=== PATIENT | male | born 1965 | race Caucasian/White ===

== ENCOUNTER → 2017-01-08 | Outpatient (CLI) | payer OTHER | LOC: CIMAGING 07:20 | PROVIDERS: ATTEND Family Medicine | DX: K40.90 Unilateral inguinal hernia, without obstruction or gangrene, not specified as recurrent (principal) | CPT/HCPCS: 76882-PO ==

== ENCOUNTER → 2017-04-10 | Outpatient (CLI) | payer OTHER | LOC: FIMAGING 09:59 | PROVIDERS: ATTEND Family Medicine | DX: M75.111 Incomplete rotator cuff tear or rupture of right shoulder, not specified as traumatic (principal); M75.51 Bursitis of right shoulder ==